=== PATIENT | female | born 1980 | race Asian ===

== ENCOUNTER 2019-03-03 00:13 | Emergency (ER) | payer BC ==
[~2019-03-03] VITALS: Ht 165.1 cm; Wt 64.9 kg
[2019-03-03 00:17] VITALS: Ht 165.1 cm; Wt 64.9 kg
[2019-03-03 01:38] LABS: UA SPECIFIC GRAVITY <=1.005 (1.005-1.035); microscopic required? YES; urine erythrocyte 2+ (NEGATIVE)
[2019-03-03 02:04] LABS: BASOPHIL % 0.2 % (0-2); PLATELET COUNT 373 x10^3mcL (130-400)
[2019-03-03 02:05] LABS: RED CELL DISTRIBUTION WIDTH 11.4 % (11.5-14.5)
[2019-03-03 03:17] VITALS: BP 118/77
== END 2019-03-03 03:17 | disposition home or self-care (01) ==
LOC: ED 00:13
PROVIDERS: Emergency Medicine
DX: O30.001 Twin pregnancy, unspecified number of placenta and unspecified number of amniotic sacs, first trimester (principal); O20.0 Threatened abortion; Z3A.10 10 weeks gestation of pregnancy
CPT/HCPCS: 36415; Q0092